=== PATIENT | male | born 1960 | race Caucasian/White ===

== ENCOUNTER 2017-01-13 | Emergency (ER) | payer OTHER | END 2017-01-13 23:20 | disposition left against medical advice (07) | DX: Z53.21 Procedure and treatment not carried out due to patient leaving prior to being seen by health care provider (principal) ==

== ENCOUNTER → 2021-03-03 | Outpatient (CLI) | payer OTHER ==
[~2021-03-03] MED LIST: PROBIOTIC1 EAC3 PO; PROTONIX40 MG PO; ZOFRAN4 MG PO
== END ==
LOC: LAB 14:51
DX: S20.212A Contusion of left front wall of thorax, initial encounter (principal)
CPT/HCPCS: 71111

== ENCOUNTER → 2021-06-09 | Outpatient (CLI) | payer OTHER, BC | LOC: RAD 12:18 | DX: M79.641 Pain in right hand (principal); M19.041 Primary osteoarthritis, right hand | CPT/HCPCS: 73130 ==

== ENCOUNTER 2021-08-09 12:54 | Emergency (ER) | payer BC, OTHER ==
[2021-08-09 13:42] LABS: HEMOGLOBIN 15.7 gm/dl (14.0-17.5); RED BLOOD COUNT 5.09 M/UL (4.20-5.50); WHITE BLOOD COUNT 6.9 K/UL (4.5-11.0)
[2021-08-09 14:11] LABS: BUN/CREATININE RATIO 13 (0-10)
== END 2021-08-09 17:37 | disposition home or self-care (01) ==
LOC: ER1 12:54
PROVIDERS: Emergency Medicine
DX: R06.02 Shortness of breath (principal); R09.89 Other specified symptoms and signs involving the circulatory and respiratory systems; R09.81 Nasal congestion; Z20.822 Contact with and (suspected) exposure to COVID-19
CPT/HCPCS: 71045; 80053; 82550; 82553; 83874; 83880; 84484; 85025; 93005; 99285; U0002